=== PATIENT | male | born 1975 | race Caucasian/White ===

== ENCOUNTER 2018-05-04 11:52 | Day surgery (SDC) | payer BC ==
[~2018-05-04 11:52] MED LIST: CEFAZOLIN 2 GM/50 ML (PMX) 50 ML IVPB; LIDOCAINE 2% (SDV) 5 ML INJ; SOD CHLORIDE 0.9% 1,000 ML IV
[2018-05-04 13:49] LABS: ADD MAN DIFF? NO
[2018-05-04 13:51] LABS: BASOPHILS % 0.6 % (0.0-2.0); EOSINOPHILS # 0.1 10^3/ul (0.0-0.5); EOSINOPHILS % 0.9 % (0.0-7.0); HEMATOCRIT 41.3 % (42.0-52.0); HEMOGLOBIN 14.4 g/dl (14.0-18.0); LYMPHOCYTES # 1.3 10^3/ul (0.8-2.9); LYMPHOCYTES % 23.6 % (15.0-51.0); MEAN CORPUSCULAR HEMOGLOBIN 29.4 pg (29.0-33.0); MEAN CORPUSCULAR HGB CONC 34.9 g/dl (32.0-37.0); MEAN CORPUSCULAR VOLUME 84.5 fl (82.0-101.0); MEAN PLATELET VOLUME 10.3 fl (7.4-10.4); MONOCYTE # 0.5 10^3/ul (0.3-0.9); MONOCYTES % 8.8 % (0.0-11.0); NEUTROPHIL # 3.5 10^3/ul (1.6-7.5); NEUTROPHILS % 65.7 % (39.0-77.0); PLATELET COUNT 120 10^3/UL (140-415); POSITIVE DIFF @See below; RED BLOOD COUNT 4.89 10^6/ul (4.70-6.10); RED CELL DISTRIBUTION WIDTH 12.1 % (11.5-14.5)
[2018-05-04 13:51] LABS: WHITE BLOOD COUNT 5.3 10^3/ul (4.8-10.8)
[2018-05-04 13:55] LABS: INR 0.99; PROTIME 13.2 Sec (11.9-14.9)
[2018-05-04 13:58] LABS: ALANINE AMINOTRANSFERASE 49 IU/L (13-69); ALBUMIN 4.2 g/dl (3.3-4.9); ALBUMIN/GLOBULIN RATIO 1.31; ALKALINE PHOSPHATASE 109 IU/L (42-121); ANION GAP 7 (5-13); ASPARTATE AMINO TRANSFERASE 29 IU/L (15-46); BILIRUBIN,INDIRECT 0.8 mg/dl (0-1.1); BILIRUBIN,TOTAL 0.8 mg/dl (0.2-1.3); BLOOD UREA NITROGEN 11 mg/dl (7-20); CARBON DIOXIDE 28 mmol/L (21-31); CHLORIDE 108 mmol/L (97-110); CREATININE 0.75 mg/dl (0.61-1.24); GLUCOSE 91 mg/dl (70-220); POTASSIUM 4.2 mmol/L (3.5-5.1); SODIUM 143 mmol/L (135-144); TOTAL PROTEIN 7.4 g/dl (6.1-8.1)
[2018-05-04 14:49] LABS: PARTIAL THROMBOPLASTIN TIME 98.1 Sec (23.0-35.0)
[2018-05-04] MEDS ORDERED: PROPOFOL 20 ML (15:53)
[2018-05-04] MEDS ORDERED: ROCURONIUM 50 MG INJ (15:54)
[2018-05-04] MEDS ORDERED: CEFAZOLIN 1 GM INJ (16:08)
[2018-05-04] MEDS ORDERED: DEXAMETHASONE 4 MG/ML 1 ML INJ (16:12)
[2018-05-04] MEDS ORDERED: ONDANSETRON 4 MG INJ (16:12)
[2018-05-04] MEDS: BUPIVACAINE 0.25% (MPF) 30 ML INJ (16:27)
[2018-05-04] MEDS: POLYMYXIN/BACITRACIN 1L IRRIG IRR (16:27)
[2018-05-04] MEDS ORDERED: SUGAMMADEX SODIUM 200 MG/2 ML VIAL IV (16:39)
[2018-05-04] MEDS ORDERED: HYDROmorphONE 1 MG/5 ML IV SYRINGE IV ×2 (16:53→17:00)
[2018-05-04] MEDS: HYDROmorphONE 1 MG/5 ML IV SYRINGE IV ×3 (16:55→17:12)
[2018-05-04] MEDS ORDERED: EPHEDrine SULFATE 50 MG/5 ML SYG IV (17:00)
[2018-05-04] MEDS ORDERED: LABETALOL HCL 20MG INJ IV (17:00)
[2018-05-04] MEDS ORDERED: MEPERIDINE 25 MG INJ IV (17:00)
[2018-05-04] MEDS ORDERED: KETOROLAC 30 MG INJ IV (17:00)
[2018-05-04] MEDS ORDERED: ONDANSETRON 4 MG INJ IV (17:00)
[2018-05-04] MEDS ORDERED: FENTAnyl 50 MCG/ML VIAL IV ×3 (17:00)
[2018-05-04] MEDS ORDERED: DIPHENHYDRAMINE 50 MG INJ IV (17:00)
[2018-05-04] MEDS ORDERED: ALBUTEROL 0.083% (NEB) 2.5 MG/3 ML AMP HHN (17:00)
[2018-05-04] MEDS ORDERED: METOCLOPRAMIDE 10 MG INJ IV (17:00)
[2018-05-04] MEDS ORDERED: OXYCODONE/ACETAMINOPHEN (5/325) TAB PO (17:00)
[2018-05-04] MEDS ORDERED: hydrALAzine 20 MG INJ IV (17:00)
[2018-05-04] MEDS: HYDROCODONE/APAP (5/325) TAB PO (17:06)
[2018-05-04] MEDS: OXYCODONE/ACETAMINOPHEN (5/325) TAB PO (17:58)
== END 2018-05-04 18:50 | disposition home or self-care (01) ==
LOC: SDS 11:52
DX: K40.30 Unilateral inguinal hernia, with obstruction, without gangrene, not specified as recurrent (principal); Z86.718 Personal history of other venous thrombosis and embolism; Z79.01 Long term (current) use of anticoagulants
CPT/HCPCS: 49507; 80053; 85025; 85610; 85730